=== PATIENT | male | born 1970 | race Two or more races ===

== ENCOUNTER 2023-02-23 10:53 | Emergency (ER) | payer OTHER ==
[~2023-02-23] VITALS: Ht 165.1 cm; Wt 72.7 kg
[2023-02-23 11:00] VITALS: PULSE 93; RESP 20; TEMP 98.3; O2SAT 96
[2023-02-23 11:28] LABS: Hemoglobin 12.6 g/dL (13.5-17.5)
[2023-02-23 11:31] LABS: Hematocrit 38.4 % (41.0-53.0); Mean Corpuscular Hemoglobin 24.1 pg (28.0-32.0); Mean Corpuscular Hgb Conc. 32.7 g/dL (32.0-36.0); Mean Corpuscular Volume 73.6 fL (80.0-100.0); Red Blood Cells 5.22 10^6/uL (4.5-5.90); Red Cell Distribution Width 17.8 % (11.8-14.3)
[2023-02-23 11:42] LABS: INR 1.08 (0.9-1.15); Partial Thromboplastin Time 30.2 SEC (24.5-34.5); Prothrombin Time 11.3 sec (9.3-11.8)
[2023-02-23 11:43] LABS: Basophils % (manual) 0 (0.0-2.0); Blast Cells 0; Eosinophils % (manual) 0 (0-7); Myelocytes % 0; Promyelocytes % 0; Reactive Lymphocytes 0; White Blood Cell 1.8 10^3/uL (4.4-10.8)
[2023-02-23 11:49] LABS: Alanine Aminotransferase 15 U/L (7-40); Albumin 3.9 g/dL (3.2-4.8); Alkaline Phosphatase 62 U/L (46-116); Anion Gap 12 (5-15); Aspartate Aminotransferase 15 U/L (13-40); Blood Urea Nitrogen 19 mg/dL (9-23); Calcium 9.1 mg/dL (8.5-10.1); Carbon Dioxide 22 mmol/L (20-30); Chloride 101 mmol/L (98-107); Glucose 141 mg/dL (74-106); Potassium 3.9 mmol/L (3.5-5.1); Sodium 135 mmol/L (136-145)
[2023-02-23 11:50] LABS: Bilirubin, Total 0.7 mg/dL (0.2-1.0)
[2023-02-23] MEDS ORDERED: IOHEXOL 350 MG/ML 100ML IJ ONE (12:24)
[2023-02-23 12:37] LABS: Band Neutrophils % (manual) 11; Lymphocytes % (manual) 26 (10.0-50.0); Metamyelocytes % 2; Monocytes % (manual) 12 (0-12)
[2023-02-23 12:38] LABS: Hypochromia Slight; Platelet Estimate Adequate
[2023-02-23] MEDS ORDERED: HYDROcodone-ACET 5/325MG TAB PO ONE (17:15)
[2023-02-23] MEDS ORDERED: ZOFR4T PO (17:38)
[2023-02-23] MEDS ORDERED: METO-281 PO (17:45)
[2023-02-23 18:00] VITALS: BP 122/96; PULSE 94; RESP 12; O2SAT 97
== END 2023-02-23 18:33 | disposition home or self-care (01) ==
LOC: EDBD 10:53 → ER 10:53
DX: R07.89 Other chest pain (principal); E11.9 Type 2 diabetes mellitus without complications; I10 Essential (primary) hypertension; Z98.890 Other specified postprocedural states
CPT/HCPCS: 36415; 71275; 80053; 84484; 85007; 85027; 85610; 85730; 93005; 99285; Q9967